=== PATIENT | female | born 1995 | race Hispanic/Latino ===

== ENCOUNTER 2022-08-09 09:38 | Emergency (ER) | payer MEDICAID ==
[~2022-08-09] VITALS: Ht 167.6 cm; Wt 61.3 kg
[2022-08-09 10:00] VITALS: BP 102/70
[2022-08-09] MEDS ORDERED: CEPHALEXIN500 M1 PO (11:57)
[2022-08-09] MEDS ORDERED: BACTRIM DS1 TAB PO (11:57)
[2022-08-09 12:01] VITALS: BP 102/70
== END 2022-08-09 12:24 | disposition home or self-care (01) ==
LOC: ED 09:38
DX: O91.22 Nonpurulent mastitis associated with the puerperium (principal)

== ENCOUNTER 2024-07-13 18:24 | Emergency (ER) | payer MEDICAID ==
[~2024-07-13] VITALS: Ht 167.6 cm; Wt 77.0 kg
[~2024-07-13 18:24] MED LIST: BACTRIM DS1 TAB PO; CEPHALEXIN500 M1 PO
[2024-07-13 18:36] VITALS: BP 99/74
[2024-07-13] MEDS ORDERED: predniSONE 20 MG/TAB PO ONE (18:40)
[2024-07-13] MEDS ORDERED: SILVER SULFADIAZINE 400 GM JAR TOP ONE (18:40)
[2024-07-13] MEDS ORDERED: DiphenhydrAMINE HCL 25 MG CPLT PO ONE (18:40)
[2024-07-13 18:47] VITALS: BP 137/92
[2024-07-13] MEDS ORDERED: SILVER SULFADIAZINE 50 GM/TUBE EA TOP ONE (18:55)
[2024-07-13 19:03] VITALS: BP 134/68
[2024-07-13 19:13] VITALS: BP 134/68
== END 2024-07-13 19:13 | disposition home or self-care (01) ==
LOC: ED 18:24
DX: T63.431A Toxic effect of venom of caterpillars, accidental (unintentional), initial encounter (principal); R21 Rash and other nonspecific skin eruption